=== PATIENT | female | born 1960 | race Caucasian/White ===

== ENCOUNTER 2017-01-18 01:40 | Inpatient (IN) | payer BC ==
[~2017-01-18] VITALS: Ht 157.5 cm; Wt 86.0 kg
[2017-01-18] MEDS ORDERED: SODIUM CHLORIDE 0.9% 1,000ML IVBOLUS ONE (02:30)
[2017-01-18] MEDS ORDERED: SODIUM CHLORIDE FLUSH 10ML SYR IVF ONE (02:30)
[2017-01-18] MEDS ORDERED: ASPIRIN 81 MG TABLET CHEW PO ONE (02:30)
[2017-01-18] MEDS ORDERED: NITROGLYCERIN SINGLE TAB 0.4 MG SL ONE (02:33)
[2017-01-18] MEDS ORDERED: ASPIRIN 81 MG TABLET CHEW ONE (02:33)
[2017-01-18] MEDS: NITROGLYCERIN SINGLE TAB 0.4 MG SL PRN ×3 (02:37→03:36)
[2017-01-18 02:57] LABS: HEMATOCRIT 37.6 % (34.6-47.8); HEMOGLOBIN 12.3 g/dL (11.7-16.4); WHITE BLOOD COUNT 12.5 x10^3/uL (3.4-10)
[2017-01-18 03:08] LABS: ASPARTATE AMINO TRANSFERASE 22 U/L (15-37); BLOOD UREA NITROGEN 20 mg/dL (7-18)
[2017-01-18 03:19] LABS: IS PT STATUS REG ER OR PRE ER? YES
[2017-01-18] MEDS ORDERED: MONT4GRA PO (03:41)
[2017-01-18] MEDS ORDERED: NITROGLYCERIN/D5W PMX 250 ML IV SCH (03:41)
[2017-01-18] MEDS ORDERED: FENO50CA2 PO (03:41)
[2017-01-18] MEDS ORDERED: ZOLP10TA PO (03:41)
[2017-01-18] MEDS ORDERED: VENL37.52 PO (03:41)
[2017-01-18] MEDS ORDERED: HEPARIN 5,000 UNITS/ML, 1ML IV PRN (04:00)
[2017-01-18] MEDS ORDERED: FUROSEMIDE 20 MG/2 ML IV ONE (04:00)
[2017-01-18] MEDS ORDERED: HEPARIN 5,000 UNITS/ML, 1ML IV ONE (04:00)
[2017-01-18] MEDS ORDERED: HEPARIN 25,000 UNITS/500ML PMX 500 ML IV PRN (04:00)
[2017-01-18] MEDS ORDERED: NS + 20MEQ KCL 1,000 ML IV SCH (04:09)
[2017-01-18] MEDS ORDERED: HEPARIN 25,000 UNITS/500ML PMX 500 ML ONE (04:13)
[2017-01-18] MEDS ORDERED: HEPARIN 5,000 UNITS/ML, 1ML ONE (04:13)
[2017-01-18] MEDS ORDERED: FUROSEMIDE 20 MG/2 ML ONE (04:13)
[2017-01-18] MEDS ORDERED: NITROGLYCERIN/D5W PMX 250 ML ONE (04:14)
[2017-01-18] MEDS ORDERED: morphine SULFATE 10 MG/ML, 1ML IVPush PRN (04:30)
[2017-01-18] MEDS ORDERED: DOCUSATE 100 MG CAPSULE PO PRN (04:30)
[2017-01-18] MEDS ORDERED: ONDANSETRON 2MG/ML, 2ML IVPush PRN (04:30)
[2017-01-18] MEDS ORDERED: ZOLPIDEM 10MG TABLET PO PRN (04:30)
[2017-01-18] MEDS ORDERED: IBUPROFEN 600 MG TABLET PO PRN (04:30)
[2017-01-18] MEDS ORDERED: POLYETHYLENE GLYCOL 17 GM PACKET PO PRN (04:30)
[2017-01-18] MEDS ORDERED: MORPHINE SULFATE 4 MG/ML, 1ML ONE ×2 (06:06→13:29)
[2017-01-18] MEDS: morphine SULFATE 10 MG/ML, 1ML IVPush PRN ×2 (06:08→10:02)
[2017-01-18 08:41] LABS: IS PT STATUS REG ER OR PRE ER? NO
[2017-01-18] MEDS: ASPIRIN 325 MG TABLET PO SCH (09:00)
[2017-01-18] MEDS: VENLAFAXINE XR 37.5MG CAP.ER.24H PO SCH (10:01)
[2017-01-18] MEDS: MONTELUKAST 4 MG TAB.CHEW PO SCH (10:01)
[2017-01-18] MEDS: METOPROLOL TARTRATE 25 MG TABLET PO SCH ×2 (10:02→18:12)
[2017-01-18] MEDS ORDERED: FENTANYL PF 100 MCG/2ML ONE (11:48)
[2017-01-18] MEDS ORDERED: MIDAZOLAM 1 MG/ML, 5ML ONE (11:48)
[2017-01-18] MEDS ORDERED: NITROGLYCERIN 5 MG/ML, 10ML ONE (11:48)
[2017-01-18] MEDS ORDERED: HEPARIN 1,000 UNITS/ML, 10ML ONE (11:49)
[2017-01-18] MEDS ORDERED: TICAGRELOR 90 MG TABLET ONE (11:49)
[2017-01-18] MEDS ORDERED: BIVALIRUDIN 250 MG ONE (11:49)
[2017-01-18] MEDS ORDERED: LIDOCAINE 2%, 20ML ONE ×2 (11:49→12:34)
[2017-01-18] MEDS ORDERED: VERAPAMIL 2.5 MG/ML, 2ML ONE (11:49)
[2017-01-18] MEDS ORDERED: ONDANSETRON 2MG/ML, 2ML ONE (13:01)
[2017-01-18 14:09] VITALS: BP 119/82
[2017-01-18] MEDS ORDERED: MORPHINE SULFATE 4 MG/ML, 1ML IVPush PRN (16:30)
[2017-01-18] MEDS: ATORVASTATIN 40 MG TABLET PO SCH (21:28)
[2017-01-19] MEDS ORDERED: OMNIPAQUE 350 MG/ML, 100ML BOTTLE ONE (01:09)
[2017-01-19 04:00] VITALS: BP 109/61
[2017-01-19 04:44] LABS: BLOOD UREA NITROGEN 19 mg/dL (7-18)
[2017-01-19 04:55] LABS: IS PT STATUS REG ER OR PRE ER? NO
[2017-01-19] MEDS: METOPROLOL TARTRATE 25 MG TABLET PO SCH (06:22)
[2017-01-19] MEDS: ASPIRIN 325 MG TABLET PO SCH (06:22)
[2017-01-19] MEDS: VENLAFAXINE XR 37.5MG CAP.ER.24H PO SCH (08:19)
[2017-01-19] MEDS: MONTELUKAST 4 MG TAB.CHEW PO SCH (08:19)
[2017-01-19] MEDS ORDERED: FAMOTIDINE 20 MG TABLET PO PRN (09:00)
[2017-01-19] MEDS: ISOSORBIDE MONONITRATE ER 30 MG TABLET PO SCH (09:30)
[2017-01-19] MEDS: AMLODIPINE 2.5 MG TABLET PO SCH (11:30)
[2017-01-19] MEDS ORDERED: FLU VACC QS2016-17 (36MOS+)UP/PF 0.5 ML IM-VACC ONE (12:00)
[2017-01-19] MEDS ORDERED: DIPH,PERTUSS(ACELL),TET VAC/PF NC IM-VACC ONE (12:00)
[2017-01-19] MEDS: ATORVASTATIN 40 MG TABLET PO SCH (21:04)
[2017-01-20 02:00] VITALS: BP 130/80
[2017-01-20 05:27] LABS: HEMATOCRIT 38.9 % (34.6-47.8); HEMOGLOBIN 12.6 g/dL (11.7-16.4); WHITE BLOOD COUNT 11.2 x10^3/uL (3.4-10)
[2017-01-20 05:47] LABS: ASPARTATE AMINO TRANSFERASE 15 U/L (15-37); BLOOD UREA NITROGEN 15 mg/dL (7-18)
[2017-01-20] MEDS: ASPIRIN 325 MG TABLET PO SCH (06:08)
[2017-01-20 06:55] VITALS: BP 135/86
[2017-01-20] MEDS: VENLAFAXINE XR 37.5MG CAP.ER.24H PO SCH (08:11)
[2017-01-20] MEDS: MONTELUKAST 4 MG TAB.CHEW PO SCH (08:11)
[2017-01-20] MEDS: AMLODIPINE 2.5 MG TABLET PO SCH (08:11)
[2017-01-20] MEDS: ISOSORBIDE MONONITRATE ER 30 MG TABLET PO SCH (08:12)
[2017-01-20] MEDS ORDERED: TICAGRELOR 90 MG TABLET PO SCH (09:00)
[2017-01-20] MEDS ORDERED: LISINOPRIL 5 MG TABLET PO SCH (09:00)
[2017-01-20] MEDS ORDERED: LISI5TAB7 PO (14:22)
[2017-01-20] MEDS ORDERED: ASPI-621 PO (14:22)
[2017-01-20] MEDS ORDERED: ISOS30TA8 PO (14:22)
[2017-01-20] MEDS ORDERED: AMLO2.5T PO (14:22)
[2017-01-20] MEDS ORDERED: TICA90TA PO (14:22)
[2017-01-20] MEDS ORDERED: ATOR40TA78 PO (14:22)
[2017-01-20 14:48] VITALS: BP 132/87
[2017-01-21] MEDS ORDERED: ASPIRIN 81 MG TABLET EC PO SCH (06:00)
== END 2017-01-20 15:12 | disposition home or self-care (01) | DRG 281 ==
LOC: ED 03:53 → EDIP 03:58 → SUATTDRO 03:58 → CCU 07:44 → 5SO 01-19 10:07
PROVIDERS: ADMIT Family Medicine; ATTEND Family Medicine
PROC: 4A023N7 Measurement of Cardiac Sampling and Pressure, Left Heart, Percutaneous Approach (ICD-10-PCS; principal; 2017-01-18)
PROC: B2111ZZ Fluoroscopy of Multiple Coronary Arteries using Low Osmolar Contrast (ICD-10-PCS; 2017-01-18)
PROC: B2151ZZ Fluoroscopy of Left Heart using Low Osmolar Contrast (ICD-10-PCS; 2017-01-18)
DX: I21.4 Non-ST elevation (NSTEMI) myocardial infarction (principal); I42.9 Cardiomyopathy, unspecified; I50.9 Heart failure, unspecified; I51.81 Takotsubo syndrome; E78.5 Hyperlipidemia, unspecified; F12.90 Cannabis use, unspecified, uncomplicated; I73.9 Peripheral vascular disease, unspecified; Z96.653 Presence of artificial knee joint, bilateral; J45.909 Unspecified asthma, uncomplicated; F32.9 Major depressive disorder, single episode, unspecified; Z82.49 Family history of ischemic heart disease and other diseases of the circulatory system; I25.2 Old myocardial infarction; Z86.718 Personal history of other venous thrombosis and embolism; Z87.891 Personal history of nicotine dependence; Z88.5 Allergy status to narcotic agent; Z88.8 Allergy status to other drugs, medicaments and biological substances; Z98.51 Tubal ligation status
CPT/HCPCS: 36415; 71010; 71275; 80048; 80053; 80061; 83690; 83880; 84484; 85025; 85379; 85520; 85610; 85730; 87081; 93005; 93306; 93458; 96361; 96374; 96375; 99156; 99157; C1760; C1894; J0583; J1644; J2250; J2405; J3010; J3480; J3490; Q9967; C1887; J1940; J2270; J7030